=== PATIENT | male | born 1945 | race Caucasian/White ===

== ENCOUNTER 2018-01-11 19:47 | Emergency (ER) | payer OTHER ==
[~2018-01-11] VITALS: Ht 152.4 cm; Wt 89.6 kg
[2018-01-11 20:21] LABS: ABSOLUTE BASOPHILS 0.1 thou/uL (0.0-0.2); ABSOLUTE EOSINOPHILS 0.3 thou/uL (0.0-0.7); ABSOLUTE MONOCYTES 0.6 thou/uL (0.0-1.2); ABSOLUTE NEUTROPHILS 3.1 thou/uL (1.6-8.1); EOSINOPHILS 4.5 %; HEMATOCRIT 39.1 % (42.0-52.0); HEMOGLOBIN 12.8 gm/dL (14.0-18.0); LYMPHOCYTES 33.4 %; MCH 27.7 pg (26.0-34.0); MCHC 32.6 g/dL (28.0-37.0); MONOCYTES 9.8 %; MPV 7.9 fl. (7.2-11.1); NUCLEATED RBCS 0 /100WBC; PLATELET COUNT* 237 thou/uL (150-400); POLYS 51.3 %; RBC 4.61 mil/uL (4.50-6.00); RDW-CV 16.7 % (10.5-14.5); WBC 6.1 thou/uL (4.0-11.0)
[2018-01-11 20:29] LABS: ANION GAP 14 mmol/L (7-16); BUN 13 mg/dL (7-18); CALCIUM 8.4 mg/dL (8.5-10.1); CHLORIDE 103 mmol/L (98-107); CO2 18 mmol/L (21-32); CREATININE 0.8 mg/dL (0.6-1.3); GLUCOSE 84 mg/dL (70-99); POTASSIUM 3.5 mmol/L (3.5-5.1); SODIUM 135 mmol/L (136-145)
[2018-01-11 20:31] LABS: INR 1.1; PROTIME 10.9 Seconds (9.20-11.50)
[2018-01-11 20:36] LABS: ALBUMIN 3.1 g/dL (3.4-5.0); ALKALINE PHOSPHATASE 67 U/L (46-116); SGOT 15 U/L (15-37); SGPT 22 U/L (30-65); TOTAL BILIRUBIN 0.3 mg/dL (<0.1-1.0); TOTAL PROTEIN 6.8 g/dL (6.4-8.2); TROPONIN-I LEVEL <0.06 ng/mL (<0.06)
[2018-01-11 23:26] VITALS: BP 143/85
--- NOTE | 2018-01-14 11:30 | EKG ---
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 : 1945 Requested By: Bia Machado Order Number: [id number] MD: Anderson Grande Measurements Intervals [place] Rate: 90 P: [place]: QRS: 61 QRSD: 128 T: 6 QT: 414 QTc: 507 Interpretive Statements Atrial fibrillation Right bundle branch block Compared to ECG 12/25/2008 11:16:34 Right bundle-branch block now present Sinus rhythm no longer present Electronically Signed On 01-14-2018 11:30:33 CDT by Anderson Grande [email or web address] <ELECTRONICALLY SIGNED> By: Anderson Grande MD, [facility] 01/14/18 1130 21 21 Anderson Grande MD, FAC /EPI
== END 2018-01-11 23:28 | disposition home or self-care (01) ==
LOC: M.ERS 19:47
PROVIDERS: Emergency Medicine
DX: S00.211A Abrasion of right eyelid and periocular area, initial encounter (principal); F10.129 Alcohol abuse with intoxication, unspecified; Z88.0 Allergy status to penicillin; W17.89XA Other fall from one level to another, initial encounter; Y93.89 Activity, other specified; Y92.89 Other specified places as the place of occurrence of the external cause; Y99.8 Other external cause status; Y90.6 Blood alcohol level of 120-199 mg/100 ml

== ENCOUNTER 2021-02-28 18:20 | Inpatient (IN) | payer OTHER ==
[~2021-02-28] VITALS: Ht 175.3 cm; Wt 88.5 kg
[2021-02-28 18:21] VITALS: BP 147/91
[2021-02-28 19:03] LABS: URINE BLOOD NEGATIVE (Negative); URINE CLARITY CLEAR; URINE COLOR YELLOW; URINE GLUCOSE-RANDOM NEGATIVE (Negative); URINE KETONES NEGATIVE (Negative); URINE LEUKOCYTES-REFLEX NEGATIVE (Negative); URINE NITRITE-REFLEX NEGATIVE (Negative); URINE PROTEIN NEGATIVE (Negative); URINE SPECIFIC GRAVITY >= 1.030 (1.005-1.030); URINE UROBILINOGEN 0.2 E.U./dl (0.2-1.0)
[2021-02-28 19:06] LABS: URINE BILIRUBIN 1+ (Negative)
[2021-02-28 19:07] LABS: ICTOTEST (BILI CONFIRMATORY) Negative (Negative)
[2021-02-28 20:22] LABS: HEMATOCRIT 34.6 % (42.0-52.0); HEMOGLOBIN 11.3 gm/dL (14.0-18.0); MCHC 32.5 g/dL (28.0-37.0); MPV 7.4 fl. (7.2-11.1); NUCLEATED RBCS 0 /100WBC; PLATELET COUNT* 249 thou/uL (150-400); RBC 4.17 mil/uL (4.50-6.00); RDW-CV 18.5 % (10.5-14.5); WBC 13.5 thou/uL (4.0-11.0)
[2021-02-28 20:37] LABS: CALCIUM 8.2 mg/dL (8.5-10.1); POTASSIUM 4.5 mmol/L (3.5-5.1)
[2021-02-28 20:41] LABS: BE -1.6 mmol/L (-2 to +3); PCO2 30.8 mmHg (35.0-45.0); PO2 92.7 mmHg (75.0-100.0)
[2021-02-28 20:42] LABS: ALBUMIN 3.4 g/dL (3.4-5.0); TOTAL BILIRUBIN 0.4 mg/dL (<0.1-1.0); TOTAL PROTEIN 7.1 g/dL (6.4-8.2)
[2021-02-28 21:07] LABS: ABSOLUTE LYMPHOCYTES 1.1 thou/uL (0.8-5.3); ABSOLUTE MONOCYTES 0.9 thou/uL (0.0-1.2); ABSOLUTE NEUTROPHILS 11.5 thou/uL (1.6-8.1); PLATELET ESTIMATE ADEQUATE
[2021-02-28 21:08] LABS: LARGE PLATELETS RARE
[2021-03-01] VITALS: BP 120/62
[2021-03-01 00:30] VITALS: BP 138/63
[2021-03-01 07:20] VITALS: BP 142/44
--- NOTE | 2021-03-01 07:54 | NUR ---
PATIENT ARRIVED ON FLOOR FROM ER AT ABOUT 0015. PATIENT ADMISSION HISTORY AND ASSESSMENT WAS COMPLETED BEFORE COMING TO THE FLOOR. PATRICIA MARQUEZ STATED THAT PATIENT HAD MAGGOTS TO RIGHT FOOT ALL BETWEEN HIS TOES THAT SHE CLEANED UP HIS FOOT DOWN IN THE ER. IV FLUIDS WERE STARTED AT 100 ML/HR. PATIENT HAS HAD NO COMPLAINTS OF PAIN SINCE ARRIVAL TO FLOOR. LUNGS WHEEZY. WILL CONTINUE TO MONITOR.
[2021-03-01 09:26] VITALS: BP 142/44
--- NOTE | 2021-03-01 09:32 | EKG ---
[place] [address] ELECTROCARDIOGRAM REPORT Name: NERISSAANDERSON Valeria Room: [address] ADM IN .R.#: [id number] Admission: 02/28/21 Attend Phys: Radha Long, Discharge: Date of : 43 Date of Service: 02/28/211923 Report #: [id number] THIS REPORT FOR: //name// [facility] ED Test Date: 2021-02-28 Test Time: 19:24:09 Pat Name: ANDERSON MULTANI Department: Room: [facility] Gender: M Manager Technology: CORINNA : 1945 Requested By: Milo Rodriguez Order Number: [id number] MD: Álvaro Avila Measurements Intervals [place] Rate: 139 P: -30 NV: 87 QRS: 68 QRSD: 146 T: -12 QT: 324 QTc: 493 Interpretive Statements Atrial fibrillation with a rapid ventricular response Right bundle branch block Compared to ECG 01/11/2018 21:22:12 The rate is faster Electronically Signed On 03-01-2021 9:32:13 CDT by Álvaro Avila [email or web address] <ELECTRONICALLY SIGNED> By: Serena Avila MD, [facility] 03/01/2132 23 23 Serena Avila MD, [facility] /EPI
--- NOTE | 2021-03-01 09:32 | EKG ---
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: [place] : 1945 Requested By: Thelma Leger Order Number: [id number] MD: Álvaro Avila Measurements Intervals [place] Rate: 135 P: 166 FL: 130 QRS: 69 QRSD: 141 T: -5 QT: 338 QTc: 507 Interpretive Statements Atrial fibrillation with a rapid ventricular response Right bundle branch block Compared to ECG 02/28/2021 19:24:09 No significant changes Electronically Signed On 03-01-2021 9:32:46 CDT by Álvaro Avila [email or web address] <ELECTRONICALLY SIGNED> By: Serena Avila MD, [facility] 03/01/21931 38 38 Serena Avila MD, [facility] /EPI
[2021-03-01 10:32] LABS: CALCIUM 7.8 mg/dL (8.5-10.1); POTASSIUM 3.8 mmol/L (3.5-5.1)
[2021-03-01 10:33] LABS: HEMATOCRIT 30.4 % (42.0-52.0); HEMOGLOBIN 9.9 gm/dL (14.0-18.0); MCH 27.3 pg (26.0-34.0); MCHC 32.6 g/dL (28.0-37.0); MCV 83.9 fL (80.0-100.0); MPV 7.6 fl. (7.2-11.1); RBC 3.62 mil/uL (4.50-6.00); RDW-CV 18.6 % (10.5-14.5); WBC 8.3 thou/uL (4.0-11.0)
--- NOTE | 2021-03-01 12:51 | NUR ---
Nutrition: Pt admitted s/p fall. He was down x12 hours. Wounds on feet. Consult was received for poor intake, but pt stated he is eating fine. Wt stable, at usual wt of 194#, per pt. He wanted to order different things for his meals. I ordered his dinner for him tonight, and gave him a menu for alternative ordering. BG 151, albumin 3.4. Pt is a smoker. No nutrition concerns at this time. Low risk.
--- NOTE | 2021-03-01 13:58 | NUR ---
Pt is A&O. Resides at home with . Pt states that he uses a walker most of the time. No hx of HH. Hx of SNF post hip surgery, several years ago. Pt states that he falls often, when CM asked why, Pt stated "I guess i keep losing my balance." Pt stated that he has a hx of outpt therapy at a [facility], but states that he will not do that again, Pt stated that his insurance did not cover it. Pt wants to dc home once medically stable. CM to check Pt's HH benefits, if there are no costs, Pt states that he may be open to HH. PT/OT evals pending. Check labs. Anticipate dc tomorrow.
--- NOTE | 2021-03-01 16:29 | NUR ---
PT REMAINED ALERT AND CONFUSED, PT NEEDED TO BE REDIRECTED AT TIMES ABOUT PLAN OF CARE AND WHY HE WAS IN THE HOSPITAL. WOUND CARE AND PODIATRY CONSULTED. PT REFUSED DRESSING TO BE TAKEN OFF FOR PICTURES. FALL RISK PRECAUTIONS IN PLACE. HOURLY ROUNDING COMPLETED.
[2021-03-01 17:11] VITALS: BP 137/60
[2021-03-01 20:50] VITALS: BP 150/74
[2021-03-02 06:09] LABS: HEMATOCRIT 31.5 % (42.0-52.0); HEMOGLOBIN 10.2 gm/dL (14.0-18.0); MCH 27.3 pg (26.0-34.0); MCHC 32.4 g/dL (28.0-37.0); MCV 84.2 fL (80.0-100.0); MPV 7.7 fl. (7.2-11.1); RBC 3.74 mil/uL (4.50-6.00); RDW-CV 18.4 % (10.5-14.5); WBC 7.1 thou/uL (4.0-11.0)
[2021-03-02 06:14] LABS: CALCIUM 8.3 mg/dL (8.5-10.1); CREATININE 0.9 mg/dL (0.6-1.3); POTASSIUM 3.9 mmol/L (3.5-5.1)
--- NOTE | 2021-03-02 07:50 | NUR ---
PT AO TO SELF, SITUATION, CONFUSED AND IMPULSIVE AT TIMES. USING URINAL INDEP, AND INCONTINENT AT TIMES. MANDY CARE GIVEN. R HAND SLIV. DRSG TO R FOOT CDI, LEFT FOOT SLIGHTLY RED, PAIN MEDS GIVEN PRN. BED ALARM ON FOR SAFETY. DOES NOT USE CALL LITE BUT YELLS OUT FOR ASSISTANCE.
[2021-03-02 08:00] VITALS: BP 144/58
--- NOTE | 2021-03-02 09:51 | NUR ---
THIS BENCH MOVER IS IN AGREEMENT WITH EVALUATION BY ALEXSANDER GAGE FOR THIS DAY. FILIBERTO ALDANAT
--- NOTE | 2021-03-02 11:05 | NUR ---
WOUND NURSE: PATIENT SEEN TO ADDRESS WOUNDS BETWEEN TOES ON THE RIGHT FOOT. THESE ARE NOT MEASURABLE OR ABLE TO BE PHOTOGRAPHED. PRESENT SHALLOW EROSIONS BETWEEN EACH TOE AND WITH TISSUE RANING FROM PALE YELLOW TO RED. THERE IS SEROUSANGUINOUS DRAINAGE IN MODERATE AMOUNTS ON THE OLD DRESSING. FOOT IS REDDENED AND EDEMATOUS. PATIENT HAS PALPABLE PEDAL PULSES. PATIENT LIMITED HIS COMPLAINTS OF PAIN TO TIMES OF CONTACT WHITH CLEANSING WOUNDS. NO INSECT LARVAE WAS NOTED WITH THIS DRESSING CHANGE. CLEANSED FOOT WITH SOAP AND WATER, RINSED, THEN PATTED DRY. USED SOFTER AND THINNER CLEANSING WIPES TO CLEAN WITH. PATIENT SEEMS SOMEWHAT DEMENTED REPORTING HE JUST WANTS TO GO BACK HOME AND SMOKE CIGARETTES, DRINK BEER, AND WATCH TV. PATIENT SEEMED ATYPICALLY ANGRY AND USED PROFANITIES TOWARD THIS NURSE AND ANOTHER CAREGIVER. WOUND CARE WAS ADMINISTERED PRESCRIBED.
--- NOTE | 2021-03-02 15:30 | NUR ---
THIS FACILITY MAINTENANCE SUPERVISOR IS IN AGREEMENT WITH DOCUMENTED TREATMENT NOTE BY ALEXSANDER GAGE FOR THIS DAY. FILIBERTO ALDANAT
[2021-03-02 15:45] VITALS: BP 144/65
--- NOTE | 2021-03-02 16:09 | NUR ---
PT recommending SNF, await OT eval. CM to discuss SNF with Pt and fax referral. Anticipate dc in a few days.
[2021-03-02 19:50] VITALS: BP 138/75
--- NOTE | 2021-03-03 04:30 | NUR ---
PT A&O X 2-3, FORGETFUL. VSS ON RA. MEDS GIVEN ORDERED. PAIN MANAGED WITH NORCO. ATIVAN GIVEN X1 FOR ANXIETY. DRESSING TO RT FOOT C/D/I. BED ALARM ON FOR SAFETY. CALL LIGHT WITHIN REACH. WILL COTNINUE TO MONITOR.
[2021-03-03 07:52] VITALS: BP 164/86
--- NOTE | 2021-03-03 13:05 | NUR ---
Anticipate dc in a few days. Continue ivabx. Wound nurse and podiatry following. ?possible need for amputation. CM discussed SNF with Pt, Pt said "I will think about it, come back tomorrow." CM to follow up with Pt tomorrow. Therapies recommending SNF.
[2021-03-03 15:48] VITALS: BP 159/100
--- NOTE | 2021-03-03 18:05 | NUR ---
PATIENT HAS REMAINED A&OX4, WITH OCCASIONAL FORGETFULNESS THIS SHIFT. CALL LIGHT AND FREQUENTLY USED ITEMS WITHIN REACH.
[2021-03-03 19:45] VITALS: BP 145/62
--- NOTE | 2021-03-04 04:44 | NUR ---
PT A&O X 2-3, FORGETFUL. VSS ON RA. RT FOOT DRESSING INTACT. NORCO GIVEN FOR PAIN. PT INCONTINENT OF BLADDER AT TIMES. TURNS, HOURLY ROUNDINGS COMPLETED. CALL LIGHT WITHIN REACH. WILL CONTINUE TO MONITOR.
[2021-03-04 08:09] VITALS: BP 146/74
[2021-03-04] MEDS ORDERED: BANOPHEN25 MG PO (08:48)
[2021-03-04] MEDS ORDERED: HYDROCODON-ACE1 EAC7 PO (08:48)
[2021-03-04] MEDS ORDERED: IPRAT-ALBUT 0.5-3 ML INH (08:48)
[2021-03-04] MEDS ORDERED: CEPHALEXIN 250250 M1 PO (08:48)
--- NOTE | 2021-03-04 13:29 | NUR ---
Insurance auth received. Pt discharging to [facility], facility to picker packer and transport between [phone]. Faxed dc orders. Chart copied. Nurse report number is [phone]. CM updated Pt's of dispo, dtr to take Pt some clothes tomorrow. Updated Pt.
--- NOTE | 2021-03-04 15:18 | NUR ---
REPORT GIVEN TO REHAN AT [facility] AT 1518.
--- NOTE | 2021-03-04 16:15 | NUR ---
pt was up with gait belt and walker with asst.x2 . dressing changed on foot wound and picture taken. lt hand iv dc'd . report called to [facility] at 15:10 spoke to pawel Wiseman dc'd at 1600.
== END 2021-03-04 16:15 | DRG 872 ==
LOC: M.ERS 18:20 → M.3W 20:58 → M.TBA-ER 20:58 → M.3W 03-01 00:10
PROVIDERS: Emergency Medicine Emergency Medical Services; Family Medicine; Personal Emergency Response Attendant; ADMIT Internal Medicine; ATTEND Internal Medicine
DX: A41.9 Sepsis, unspecified organism (principal); L03.115 Cellulitis of right lower limb; M62.82 Rhabdomyolysis; Z20.822 Contact with and (suspected) exposure to COVID-19; Z96.649 Presence of unspecified artificial hip joint; E78.5 Hyperlipidemia, unspecified; I10 Essential (primary) hypertension; L97.519 Non-pressure chronic ulcer of other part of right foot with unspecified severity; Z79.899 Other long term (current) drug therapy; Z90.49 Acquired absence of other specified parts of digestive tract; Z88.0 Allergy status to penicillin